=== PATIENT | female | born 1995 | race Asian ===

== ENCOUNTER 2022-01-11 10:33 | Emergency (ER) | payer BC, SELFPAY ==
[2022-01-11 10:44] VITALS: BP 130/85; PULSE 94; RESP 12; TEMP 37.1; O2SAT 100
--- NOTE | 2022-01-11 10:47 | ED.GENADULT ---
HPI - General Adult General Chief complaint: Ear Stated complaint: throat pain,fever Time Seen by Provider: 01/11/22 10:48 Source: patient and RN notes reviewed Mode of arrival: ambulatory Limitations: no limitations History of Present Illness HPI narrative: 26-year-old female presented for complaint of sore throat and fever for 2 days. She states her fever at home was 102.6. Pain is described as a pinching, worse when swallowing, rates 8 out of 10. Endorses headache. She denies sick contacts. She denies sinus congestion, cough, shortness of breath, nausea, vomiting or diarrhea. She has taken ibuprofen and Tylenol for symptoms. Related Data Home Medications Medication Instructions Recorded Confirmed No Home Medications 01/11/22 01/11/22 Allergies Allergy/AdvReac Type Severity Reaction Status Date / Time No Known Allergies Allergy Verified 01/11/22 10:58 Review of Systems Review of Systems: CONSTITUTIONAL: Endorses malaise, chills, sweats, fever EYES: Denies visual changes, redness, or discharge ENT: Denies rhinorrhea, congestion, sinus pain, otalgia CARDIOVASCULAR: Denies chest pain, palpitations, edema RESPIRATORY: Reports cough, post nasal drainage. Denies dyspnea GASTROINTESTINAL: Denies abdominal pain, nausea, vomiting, diarrhea SKIN: Denies rash or itching MUSCULOSKELETAL: myalgia NEUROLOGIC: Endorses headache PMFSH Social History Social History Social History: Single Smoking status: Never smoker Second hand tobacco smoke exposure: No Alcohol intake: current Alcohol use details: Occasionally Substance use: never Substance use type: does not use Gender identity (if verbalized by the patient): Female Exam Narrative: GENERAL: Ill-appearing HEAD: Normocephalic EYES: conjunctivae clear ENT: Mucous membranes moist. TM pearly ching with dull light reflex bilaterally; no tragal tenderness. Oropharynx erythematous without lesions or exudate, no drooling, no hoarseness, no trismus, uvula midline. No tripod positioning, muffled voice, soft palate or pharyngeal wall bulging NECK: Supple. No lymphadenopathy CHEST: Clear to auscultation, breath sounds equal. No wheezing, rhonchi, rales, or stridor. No respiratory distress, speaks in full sentences. HEART: Regular rate and rhythm. No murmur heard. SKIN: Warm, dry, no rash. NEURO: Alert and oriented x3. PSYCH: Normal mood and affect Course Course Emergency Course: Patient is aware of diagnosis, understands and agrees to treatment plan. Anticipatory guidance given. Patient agrees to follow-up as directed and is aware of reasons to seek care at the emergency department. Portions of this record may have been created with voice recognition software Level of Care: Express Care Visit Vital Signs Vital signs: Vital Signs Temperature 98.8 F 01/11/22 10:44 Pulse Rate 94 01/11/22 10:44 Respiratory Rate 12 01/11/22 10:44 Blood Pressure 130/85 01/11/22 10:44 Pulse Oximetry 100 01/11/22 10:44 Temperature 98.8 F 01/11/22 10:44 Pulse Rate 94 01/11/22 10:44 Respiratory Rate 12 01/11/22 10:44 Blood Pressure 130/85 01/11/22 10:44 Pulse Oximetry 100 01/11/22 10:44 reviewed Medical Decision Making MDM Narrative Medical decision making narrative: strep and flu negative covid positive, she is advised on supportive treatments. Differential Diagnosis Differential Diagnosis: Influenza, covid, sinusitis, OM, strep pharyngitis, URI Vital Signs Vital Signs: Vital Signs Temperature 98.8 F 01/11/22 10:44 Pulse Rate 94 01/11/22 10:44 Respiratory Rate 12 01/11/22 10:44 Blood Pressure 130/85 01/11/22 10:44 Pulse Oximetry 100 01/11/22 10:44 Temperature 98.8 F 01/11/22 10:44 Pulse Rate 94 01/11/22 10:44 Respiratory Rate 12 01/11/22 10:44 Blood Pressure 130/85 01/11/22 10:44 Pulse Oximetry 100 01/11/22 10:44 Lab Data
== END 2022-01-11 11:18 | disposition home or self-care (01) ==
PROVIDERS: Emergency Provider Nurse Practitioner Family; PCP Family Medicine
DX: U07.1 COVID-19 (principal)
CPT/HCPCS: 87081; 87426; 87804; 87880; 99213; C9803; G0463